=== PATIENT | female | born 1995 | race Caucasian/White ===

== ENCOUNTER → 2016-11-08 | Outpatient (REF) | payer BC, MEDICAID ==
[~2016-11-08] MED LIST: CEPH500C PO; COLA50CA3 PO; FERR325T3 PO; IBUP80TA PO; MOM30SS PO; MULTTAB4 PO; PERCOCET PO; PRENTAB74 PO
== END ==
LOC: M LAB REF 16:53
PROVIDERS: ATTEND Advanced Practice Midwife
DX: Z11.3 Encounter for screening for infections with a predominantly sexual mode of transmission (principal)
CPT/HCPCS: 87491; 87591; G0123

== ENCOUNTER → 2017-06-21 | Outpatient (REF) | payer MEDICAID ==
[2017-06-21 18:44] LABS: BACTERIA, URINE NONE SEEN; HYALINE CAST, URINE NONE SEEN /lpf (0-1); MICROSCOPIC EXAM PERFORMED; RBC, URINE 0-1 /hpf (0-3); SQUAMOUS EPITHELIAL CELL URINE SMALL AMOUNT /hpf (SMALL AMT); WBC, URINE 0-1 /hpf (0-3)
== END ==
LOC: M SMT 17:13
PROVIDERS: ATTEND Specialist
DX: N30.90 Cystitis, unspecified without hematuria (principal)

== ENCOUNTER → 2017-09-26 | Outpatient (REF) | payer MEDICAID ==
[2017-09-26 19:21] LABS: TOTAL 25(OH) VITAMIN D 34.3 NG/ML (30.0-100.0); VITAMIN B12 LEVEL 615 PG/ML (247-911)
[2017-09-27 11:46] LABS: CONTROL LINE MONO RF C INT CTR LINE PRESENT; MONO REFLEX EBV COMP NEGATIVE (NEGATIVE)
[2017-09-29 00:10] LABS: EBV VIRAL CAPSID AG IgM <36.0 U/mL (0.0-35.9)
== END ==
LOC: M SFHCPLAZ 14:56
DX: R53.83 Other fatigue (principal)

== ENCOUNTER → 2017-12-19 | Outpatient (REF) | payer MEDICAID, BC | LOC: M LAB REF 18:06 | DX: Z12.4 Encounter for screening for malignant neoplasm of cervix (principal) ==

== ENCOUNTER → 2018-01-18 | Outpatient (CLI) | payer BC, MEDICAID ==
[2018-01-18 17:02] LABS: CONTROL LINE HCG INT CTR LINE PRESENT; HCG, SERUM QUALITATIVE NEGATIVE (NEGATIVE)
[2018-01-18 17:27] LABS: PROGESTERONE 8.4 NG/ML
[2018-01-18 17:27] LABS: LUTEINIZING HORMONE 0.4 mIU/mL; PROLACTIN 6.9 NG/ML
[2018-01-18 17:28] LABS: ESTRADIOL 102.7 PG/ML; FOLLICLE STIMULATING HORMONE 0.8 mIU/mL
[2018-01-18 17:38] LABS: HEMATOCRIT 44.6 % (36.0-47.0); HEMOGLOBIN 14.6 g/dl (12.0-15.5); MEAN CORPUSCULAR HEMOGLOBIN 30.7 pg (27.0-33.0); MEAN CORPUSCULAR HGB CONC 32.7 g/dl (32.0-36.5); MEAN CORPUSCULAR VOLUME 93.7 fl (80.0-96.0); PLATELET COUNT, AUTOMATED 329 10^3/uL (150-450); RED BLOOD COUNT 4.76 10^6/uL (4.00-5.40); RED CELL DISTRIBUTION WIDTH 13.2 % (11.5-14.5)
[2018-01-18 22:14] LABS: FREE T4 0.68 NG/DL (0.76-1.46)
[2018-01-23 14:15] LABS: INSULIN LEVEL 11.1 uIU/mL (2.6-24.9)
[2018-01-24 10:14] LABS: 17 HYDROXY PROGESTERONE 69 ng/dL (.); DEHYDROEPIANDROSTERONE SULFATE 298.1 ug/dL (110.0-431.7); DEHYDROEPIANDROSTERONE UNCONJ 223 ng/dL (31-701); INSULIN FREE 6.5 uU/mL (.); TESTOSTERONE FREE (DIRECT) 1.7 pg/mL (0.0-4.2)
== END ==
LOC: M LRY 14:04
DX: N92.6 Irregular menstruation, unspecified (principal)
CPT/HCPCS: 83001

== ENCOUNTER → 2018-01-30 | Outpatient (REF) | payer BC, MEDICAID ==
[2018-02-13 00:06] LABS: HPV HYBRID CAPTURE II Positive (Negative)
== END ==
LOC: M LAB REF 12:13
DX: Z12.4 Encounter for screening for malignant neoplasm of cervix (principal)
CPT/HCPCS: G0123

== ENCOUNTER → 2018-03-08 | Outpatient (REF) | payer BC, MEDICAID ==
[2018-03-08 18:21] LABS: AMORPHOUS SEDIMENT SMALL (NEGATIVE); APPEARANCE, URINE CLOUDY (CLEAR); BACTERIA, URINE AUTO 3+ (NEGATIVE); BILIRUBIN, URINE AUTO NEGATIVE (NEGATIVE); BLOOD, URINE BLOOD NEGATIVE (NEGATIVE); COLOR, URINE YELLOW (YELLOW); GLUCOSE, URINE (UA) AUTO NEGATIVE (NEGATIVE); KETONE, URINE AUTO NEGATIVE (NEGATIVE); LEUKOCYTE ESTERASE, URINE AUTO 1+ (NEGATIVE); NITRITE, URINE AUTO NEGATIVE (NEGATIVE); PROTEIN, URINE AUTO NEGATIVE (NEGATIVE); RBC, URINE AUTO 3 /HPF (0-3); SPECIFIC GRAVITY URINE AUTO 1.012 (1.002-1.035); SQUAMOUS EPITHELIAL CELL UR AU 1 /HPF (0-6); UROBILINOGEN, URINE AUTO 0.2 mg/dL (0.0-2.0); WBC, URINE AUTO 21 /HPF (0-3)
== END ==
LOC: M SMT 17:02
DX: N30.90 Cystitis, unspecified without hematuria (principal)
CPT/HCPCS: 81001

== ENCOUNTER → 2018-10-23 | Outpatient (REF) | payer BC, MEDICAID ==
[2018-10-23 19:00] LABS: APPEARANCE, URINE HAZY (CLEAR); BACTERIA, URINE AUTO 2+ (NEGATIVE); BILIRUBIN, URINE AUTO NEGATIVE (NEGATIVE); BLOOD, URINE BLOOD 1+ (NEGATIVE); COLOR, URINE YELLOW (YELLOW); GLUCOSE, URINE (UA) AUTO NEGATIVE (NEGATIVE); KETONE, URINE AUTO NEGATIVE (NEGATIVE); LEUKOCYTE ESTERASE, URINE AUTO 2+ (NEGATIVE); NITRITE, URINE AUTO POSITIVE (NEGATIVE); PROTEIN, URINE AUTO NEGATIVE (NEGATIVE); RBC, URINE AUTO 4 /HPF (0-3); SPECIFIC GRAVITY URINE AUTO 1.011 (1.002-1.035); SQUAMOUS EPITHELIAL CELL UR AU 2 /HPF (0-6); UROBILINOGEN, URINE AUTO 0.2 mg/dL (0.0-2.0); WBC, URINE AUTO 32 /HPF (0-3)
== END ==
LOC: M SMT 17:30
PROVIDERS: ATTEND Specialist
DX: N39.0 Urinary tract infection, site not specified (principal)

== ENCOUNTER → 2018-12-17 | Outpatient (REF) | payer BC ==
[~2018-12-17] MED LIST changes: +OXYC1TAB23 PO; -PERCOCET PO
== END ==
LOC: M SFHCLERA 19:27
PROVIDERS: ATTEND Nurse Practitioner Family
DX: R53.81 Other malaise (principal)

== ENCOUNTER → 2019-03-24 | Outpatient (REF) | payer BC, MEDICAID | LOC: M LAB REF 13:03 | PROVIDERS: ATTEND Advanced Practice Midwife | DX: Z12.4 Encounter for screening for malignant neoplasm of cervix (principal) ==

== ENCOUNTER → 2019-03-28 | Outpatient (CLI) | payer BC ==
[2019-03-28 14:05] LABS: BLOOD UREA NITROGEN 10 MG/DL (7-18); CALCIUM LEVEL 8.8 MG/DL (8.5-10.1); CARBON DIOXIDE LEVEL 25 MEQ/L (21-32); CHLORIDE LEVEL 109 MEQ/L (98-107); CREATININE FOR GFR 0.95 MG/DL (0.55-1.30); GLOMERULAR FILTRATION RATE > 60.0 (>60); GLUCOSE, FASTING 85 MG/DL (70-100); POTASSIUM SERUM 4.2 MEQ/L (3.5-5.1); SODIUM LEVEL 140 MEQ/L (136-145)
== END ==
LOC: M SMT 09:46
PROVIDERS: ATTEND Specialist
DX: N30.90 Cystitis, unspecified without hematuria (principal)

== ENCOUNTER → 2019-05-29 | Outpatient (REF) | payer BC, MEDICAID | LOC: M SFHCPLAZ 16:47 | PROVIDERS: ATTEND Nurse Practitioner Family | DX: N30.90 Cystitis, unspecified without hematuria (principal) ==

== ENCOUNTER → 2019-06-24 | Outpatient (REF) | payer MEDICAID | LOC: M SFHCPLAZ 09:47 | PROVIDERS: ATTEND Nurse Practitioner Adult Health | DX: N30.90 Cystitis, unspecified without hematuria (principal) ==

== ENCOUNTER → 2019-06-27 | Outpatient (CLI) | payer MEDICAID ==
[2019-06-27 13:22] LABS: BLOOD UREA NITROGEN 11 MG/DL (7-18); CALCIUM LEVEL 9.3 MG/DL (8.5-10.1); CARBON DIOXIDE LEVEL 27 MEQ/L (21-32); CHLORIDE LEVEL 107 MEQ/L (98-107); CREATININE FOR GFR 0.91 MG/DL (0.55-1.30); GLOMERULAR FILTRATION RATE > 60.0 (>60); GLUCOSE, FASTING 78 MG/DL (70-100); POTASSIUM SERUM 4.6 MEQ/L (3.5-5.1); SODIUM LEVEL 139 MEQ/L (136-145)
== END ==
LOC: M SMT 10:42
PROVIDERS: ATTEND Specialist
DX: N39.44 Nocturnal enuresis (principal)

== ENCOUNTER → 2019-07-02 | Outpatient (REF) | payer MEDICAID | LOC: M SFHCLERA 12:28 | PROVIDERS: ATTEND Nurse Practitioner Family | DX: J02.9 Acute pharyngitis, unspecified (principal) ==

== ENCOUNTER → 2019-09-05 | Outpatient (REF) | payer MEDICAID | LOC: M SFHCPLAZ 16:41 | PROVIDERS: ATTEND Nurse Practitioner Adult Health | DX: R35.0 Frequency of micturition (principal) ==

== ENCOUNTER → 2019-11-10 | Outpatient (CLI) | payer MEDICAID ==
--- NOTE | 2019-11-10 14:27 | REPPI ---
LUMBAR SPINE SERIES: Five views. HISTORY: Back pain. FINDINGS: Five views of the lumbar spine demonstrate preserved vertebral body heights and normal alignment. Disc spaces are maintained. Pedicles and posterior elements are intact. Psoas margins are symmetric. Sacrum and SI joints are intact. A IUD is noted in place in the central pelvis. IMPRESSION: Normal views of the lumbar spine. Electronically Signed by Uriel Grissom MD 11/10/2019 05:44 P
--- NOTE | 2019-11-10 14:28 | REPPI ---
CERVICAL SPINE SERIES: Seven views. HISTORY: Cervical pain. FINDINGS: Lateral views done in flexion and extension and neutral position show normal alignment. No subluxation or instability. Vertebral body heights are preserved. Disc spaces are maintained. Prevertebral soft tissues are normal in appearance. AP, oblique and open mouth odontoid views are unremarkable. Facets are normally aligned and neural foramina are intact bilaterally at each cervical level. IMPRESSION: Negative radiographs of the cervical spine. Electronically Signed by Uriel Grissom MD 11/10/2019 05:44 P
== END ==
LOC: M PLAIMG 12:38
PROVIDERS: ATTEND Nurse Practitioner Adult Health
DX: M54.5 Low back pain (principal); M54.2 Cervicalgia

== ENCOUNTER → 2020-01-21 | Outpatient (REF) | payer MEDICAID ==
[2020-01-21 18:27] LABS: APPEARANCE, URINE CLEAR (CLEAR); BACTERIA, URINE AUTO NEGATIVE (NEGATIVE); BILIRUBIN, URINE AUTO NEGATIVE (NEGATIVE); BLOOD, URINE BLOOD NEGATIVE (NEGATIVE); COLOR, URINE STRAW (YELLOW); GLUCOSE, URINE (UA) AUTO NEGATIVE (NEGATIVE); KETONE, URINE AUTO NEGATIVE (NEGATIVE); LEUKOCYTE ESTERASE, URINE AUTO 3+ (NEGATIVE); NITRITE, URINE AUTO NEGATIVE (NEGATIVE); PROTEIN, URINE AUTO NEGATIVE (NEGATIVE); RBC, URINE AUTO 2 /HPF (0-3); SPECIFIC GRAVITY URINE AUTO 1.001 (1.002-1.035); SQUAMOUS EPITHELIAL CELL UR AU 0 /HPF (0-6); UROBILINOGEN, URINE AUTO 0.2 mg/dL (0.0-2.0); WBC, URINE AUTO 10 /HPF (0-3)
== END ==
LOC: M SMT 16:40
PROVIDERS: ATTEND Nurse Practitioner Women's Health
DX: R35.0 Frequency of micturition (principal)

== ENCOUNTER → 2020-07-16 | Outpatient (REF) | payer MEDICAID | LOC: M SFHCWAGY 13:12 | PROVIDERS: ATTEND Nurse Practitioner Women's Health | DX: Z11.3 Encounter for screening for infections with a predominantly sexual mode of transmission (principal) ==

== ENCOUNTER → 2020-07-19 | Outpatient (CLI) | payer MEDICAID ==
--- NOTE | 2020-07-20 05:36 | REP ---
INDICATION: N93.9 ABNORMAL UTERINE BLEEDING COMPARISON: 04/05/2016 TECHNIQUE: Transabdominal pelvic ultrasound followed by transvaginal examination for better evaluation of the endometrium and adnexa with color Doppler evaluation of the ovaries. FINDINGS: Bladder is unremarkable and measures 8.2 x 8.9 x 6.1 cm (234 cc). Normal anteverted uterus measures 9.1 x 4.1 x 5.8 cm and IUD is identified in central satisfactory position. No obvious uterine or endometrial abnormalities are appreciated.. Bilateral ovaries are normal in appearance and vascularity without evidence for torsion. Right ovary measures 4.1 x 2.2 x 3.6 cm with 1.5 x 1.2 x 1.4 cm simple para ovarian cyst; R I = 0.35. Left ovary measures 4.4 x 2.2 x 2.3 cm; R I = 0.29. No pelvic fluid or adnexal mass lesion IMPRESSION: Normal uterus with IUD in satisfactory position. 1.5 cm simple right paraovarian cyst possibly physiologic. <Electronically signed by Iftikhar Monge > 07/20/20 [id number]
== END ==
LOC: M WHC 14:31
PROVIDERS: ATTEND Nurse Practitioner Women's Health
DX: N93.9 Abnormal uterine and vaginal bleeding, unspecified (principal); Z97.5 Presence of (intrauterine) contraceptive device

== ENCOUNTER → 2020-08-03 | Outpatient (REF) | payer MEDICAID, OTHER ==
[2020-08-03 14:12] LABS: HEMATOCRIT 44.5 % (36.0-47.0); HEMOGLOBIN 13.9 g/dl (12.0-15.5); MEAN CORPUSCULAR HEMOGLOBIN 29.9 pg (27.0-33.0); MEAN CORPUSCULAR HGB CONC 31.2 g/dl (32.0-36.5); MEAN CORPUSCULAR VOLUME 95.7 fl (80.0-96.0); PLATELET COUNT, AUTOMATED 303 10^3/uL (150-450); RED BLOOD COUNT 4.65 10^6/uL (4.00-5.40); WHITE BLOOD COUNT 11.1 10^3/uL (4.0-10.0)
[2020-08-03 14:34] LABS: FREE T4 0.75 NG/DL (0.76-1.46); THYROID STIMULATING HORMONE 5.81 uIU/ML (0.358-3.740)
== END ==
LOC: M PLALAB 10:44
PROVIDERS: ATTEND Nurse Practitioner Women's Health
DX: N93.9 Abnormal uterine and vaginal bleeding, unspecified (principal); N76.0 Acute vaginitis

== ENCOUNTER → 2020-08-13 | Outpatient (CLI) | payer MEDICAID ==
[~2020-08-13] MED LIST changes: +ADDE10TA PO; +AIMO70IN IM; +METH-855 PO; +NARA2.5T PO; +OMEP-221 PO; +OXYB-54 PO; +PARO40TA2 PO; +TAMS1CAP17 PO; +TOPI50TA9 PO; +VALA500T5 PO; +[UNRECOGNIZED DRUG - CODE] PO
== END ==
LOC: M LABSMTC 10:36
PROVIDERS: ATTEND Anesthesiology
DX: Z01.812 Encounter for preprocedural laboratory examination (principal); Z20.828 Contact with and (suspected) exposure to other viral communicable diseases

== ENCOUNTER 2020-08-18 06:15 | Day surgery (SDC) | payer MEDICAID, OTHER ==
[~2020-08-18] VITALS: Ht 172.7 cm; Wt 97.1 kg
[2020-08-18] MEDS ORDERED: fentaNYL 100 MCG/2 ML INJECTION (J3010) As Ordered ONE (06:56)
[2020-08-18] MEDS ORDERED: LIDOCAINE 2% 100MG/5ML SDV (FOR ANES.) As Ordered ONE (06:56)
[2020-08-18] MEDS ORDERED: propofoL 200 MG/20 ML VIAL As Ordered ONE ×2 (06:56→08:26)
[2020-08-18] MEDS ORDERED: MIDAZOLAM INJ 2MG/2ML VIAL (J2250 PER 1MG) As Ordered ONE (06:56)
[2020-08-18] MEDS ORDERED: LR 1,000 ML IV ONE (07:00)
[2020-08-18] MEDS ORDERED: ceFAZolin 2 GM/D5W 50 ML IV BAG (J0690 PER 500MG) As Ordered ONE (07:18)
[2020-08-18] MEDS ORDERED: ceFAZolin SOD 2 GM in IV 1 EA IV ONE (07:30)
[2020-08-18 07:33] LABS: BLOOD UREA NITROGEN 13 MG/DL (7-18); CALCIUM LEVEL 8.7 MG/DL (8.5-10.1); CARBON DIOXIDE LEVEL 25 MEQ/L (21-32); CHLORIDE LEVEL 107 MEQ/L (98-107); CREATININE FOR GFR 0.94 MG/DL (0.55-1.30); GLOMERULAR FILTRATION RATE > 60.0 (>60); GLUCOSE, FASTING 91 MG/DL (70-100); POTASSIUM SERUM 3.9 MEQ/L (3.5-5.1); SODIUM LEVEL 141 MEQ/L (136-145)
[2020-08-18] MEDS ORDERED: SODIUM BICARBONATE 8.4% INJ 50MEQ 50 ML VIAL As Ordered ONE (08:13)
[2020-08-18] MEDS ORDERED: LIDOCAINE 1% SDV 30ML VIAL As Ordered ONE (08:13)
[2020-08-18] MEDS ORDERED: BACITRACIN PWD 50,000 UNITS VIAL As Ordered ONE (08:31)
[2020-08-18] MEDS ORDERED: valACYclovir HCL 500 MG TAB PO SCH (09:00)
[2020-08-18] MEDS ORDERED: PARoxetine 20MG TABLET PO SCH (09:00)
--- NOTE | 2020-08-18 09:06 | REP ---
INDICATION: URGE INCONTINENCE, NOCTURNAL ENURESIS. COMPARISON: None. TECHNIQUE: Two views. 24 seconds of fluoroscopy time is reported. FINDINGS: A sequence of 2 last image hold fluoroscopically obtained spot radiographs of the sacrum document trans sacral neurostimulator lead position. IMPRESSION: Procedural imaging. <Electronically signed by Thanh Grissom > 08/18/20 [id number]
[2020-08-18] MEDS ORDERED: LR 1,000 ML IV SCH (09:30)
[2020-08-18] MEDS ORDERED: fentaNYL 100 MCG/2 ML INJECTION (J3010) IV PRN (09:30)
[2020-08-18] MEDS ORDERED: ONDANSETRON 4MG/2ML VIAL IV PRN (09:30)
[2020-08-18] MEDS ORDERED: HYDROMORPHONE HCL 0.5 MG/ 0.5 ML SYRINGE (J1170 PER 1) IV PRN (09:30)
[2020-08-18] MEDS ORDERED: oxyCODONE 5MG TAB PO PRN (09:30)
[2020-08-18 09:45] VITALS: BP 108/57
--- NOTE | 2020-08-18 12:36 | ROOPDOC ---
[facility] Report Of Operation Report of Operation DATE OF PROCEDURE: 08/18/20 PREPROCEDURE DIAGNOSES: Urgency, frequency, urge incontinence, nocturnal enuresis POSTPROCEDURE DIAGNOSES: Same PROCEDURE: InterStim nerve stimulation stage I: Incision and implantation of tined quadripolar lead electrodes into foramen S3 with fluoroscopic guidance for nee dle placement InterStim stage II: Incision and subcutaneous implantation of sacral nerve neurostimulator with electronic analysis and programming SURGEON: Brionna Armas MD TRUCK SWITCHER: None ANESTHESIA: Sedation ESTIMATED BLOOD LOSS: Approximately 10 mL. COMPLICATIONS: None REMARKS: Excellent Toe some anal bellowing PROCEDURE NOTE: Debbie comes in today after having a bilateral percutaneous InterStim test in the office last week. She had very significant Krugman in her urinary urgency, frequency, urge incontinence and nocturnal enuresis. She wanted to go ahead with the permanent implantation. All different options, alternat nicole, risks, and benefits were discussed. She wanted the rechargeable battery placed. Informed consent was obtained in both verbal and written form. DESCRIPTION OF PROCEDURE: The patient was brought into the operating room and placed in the prone positio n. She had pillows placed under her pelvis and under her shins. Tape was placed so that we could see her anus. IV sedation was given and she was prepped and draped in the usual fashion. A special foramen needle was placed 2 cm above the sacral notch and 3 cm lateral where the drum tester had been placed. Using fluoroscopy this was then placed through the S3 foramen. The depth of the needle was confirmed and adjusted fluoroscopically. The patient then identified the location of sensation which was in her labia. We also had direct observation of lifting of the perineum and plantar flexion of the great toe. The foramen needle stylette was removed and a directional guide was placed and confirmed fluoroscopy. Lead introducer sheath and dilator was placed through the needle and the needle was removed. The lead was seen until 3 electrodes were visible below the sacrum. The electrode was tested for location and patient sensation, visualization of Alhaji, and plantar flexion. An incision was then made into the subcutaneous tissue posterior to the iliac crest and lateral to the sacrum. Blunt dissection was continued until there was a pocket large enough for the rechargeable battery. The tunneling tool with straw was placed from the lead exit site subcutaneously to the incised pocket. The tunneling to was removed and the lead was fed through the straw and pulled out of the pocket site. The lead was cleansed of bodily fluid, dried and antibiotic irrigation was used. The lead was then inserted into the header of the InterStim micro-neurostimulator until the blue tip was visualized at the distal window the single setscrew was tightened. The neurostimulator was placed in the subcutaneous pocket with the edge identified side placed upwards and the excessive lead wrapped counterclockwise around the neurostimulator. The programming head was placed over the implanted neurostimulator in a sterile cover to ensure adequate lead connection and the parameters with were within normal limits. Impedances were confirmed to be within normal limits. The wound was again irrigated with antibiotic solution and closed with 2-0 chromic subcuticulars sutures and 4-0 Vicryl skin sutures. Counts were correct. Steri- Strips and gauze was placed over the incision. The patient tolerated the procedure well. BRIONNA ARMAS MD Aug 18, 2020 12:36
[2020-08-18] MEDS ORDERED: CEPHALEXIN 500 MG CAP PO SCH (21:00)
[2020-08-18] MEDS ORDERED: ADDERALL 5 MG TAB PO SCH (21:00)
[2020-08-19] MEDS ORDERED: TOPIRAMATE (TopAMAX) 25 MG TAB PO SCH (09:00)
== END 2020-08-18 09:52 | disposition home or self-care (01) ==
LOC: M SDC 06:15
PROVIDERS: ATTEND Specialist
DX: R39.15 Urgency of urination (principal); R35.0 Frequency of micturition; N39.41 Urge incontinence; N39.44 Nocturnal enuresis; A60.09 Herpesviral infection of other urogenital tract; E03.9 Hypothyroidism, unspecified; K58.9 Irritable bowel syndrome, unspecified; K21.9 Gastro-esophageal reflux disease without esophagitis; F41.9 Anxiety disorder, unspecified; F32.9 Major depressive disorder, single episode, unspecified; G43.909 Migraine, unspecified, not intractable, without status migrainosus; F90.9 Attention-deficit hyperactivity disorder, unspecified type; F17.210 Nicotine dependence, cigarettes, uncomplicated; Z79.899 Other long term (current) drug therapy
CPT/HCPCS: 36415; 64581; 64590; 76000; 80048; 81025; C1767; C1787; C1897; J0690; J2250; J3010

== ENCOUNTER → 2021-01-25 | Outpatient (REF) | payer OTHER ==
[2021-01-25 14:40] LABS: FREE T4 0.83 NG/DL (0.76-1.46); THYROID STIMULATING HORMONE 3.82 uIU/ML (0.358-3.740)
== END ==
LOC: M PLALAB 12:45
PROVIDERS: ATTEND Nurse Practitioner Women's Health
DX: E03.9 Hypothyroidism, unspecified (principal)

== ENCOUNTER → 2021-12-01 | Outpatient (CLI) | payer OTHER ==
[~2021-12-01] MED LIST changes: -OMEP-221 PO; +OMEP40CA5 PO
[2021-12-01 16:16] LABS: ALBUMIN 3.7 GM/DL (3.2-5.2); ALT/SGPT 19 U/L (12-78); BILIRUBIN,TOTAL 0.5 MG/DL (0.2-1.0); BLOOD UREA NITROGEN 10 MG/DL (7-18); CALCIUM LEVEL 8.8 MG/DL (8.5-10.1); CARBON DIOXIDE LEVEL 25 MEQ/L (21-32); CHLORIDE LEVEL 108 MEQ/L (98-107); CREATININE FOR GFR 0.89 MG/DL (0.55-1.30); GLOMERULAR FILTRATION RATE > 60.0 (>60); GLUCOSE, FASTING 88 MG/DL (70-100); POTASSIUM SERUM 4.1 MEQ/L (3.5-5.1); SODIUM LEVEL 139 MEQ/L (136-145); TOTAL PROTEIN 7.4 GM/DL (6.4-8.2)
[2021-12-01 17:39] LABS: HEMOGLOBIN A1c 5.7 %
== END ==
LOC: M PLALAB 12:39
PROVIDERS: ATTEND Nurse Practitioner Adult Health
DX: Z13.1 Encounter for screening for diabetes mellitus (principal); E03.9 Hypothyroidism, unspecified; K64.4 Residual hemorrhoidal skin tags

== ENCOUNTER → 2021-12-22 | Outpatient (CLI) | payer OTHER | LOC: M RAD 11:42 | PROVIDERS: ATTEND Nurse Practitioner Adult Health | DX: R22.1 Localized swelling, mass and lump, neck (principal) ==

== ENCOUNTER → 2022-10-16 | Outpatient (REF) | payer OTHER ==
[2022-10-16 18:46] LABS: FREE T4 1.09 NG/DL (0.89-1.76); THYROID STIMULATING HORMONE 0.394 uIU/ML (0.55-4.78)
== END ==
LOC: M LABDRWAD 18:00
PROVIDERS: ATTEND Nurse Practitioner Family
DX: E03.9 Hypothyroidism, unspecified (principal)

== ENCOUNTER → 2023-05-20 | Outpatient (CLI) | payer OTHER ==
[~2023-05-20] MED LIST changes: +TOPI-254 PO; -TOPI50TA9 PO
[2023-05-20 11:15] LABS: ALBUMIN 3.6 G/DL (3.2-5.2); ALKALINE PHOSPHATASE 125 U/L (46-116); ALT/SGPT 17 U/L (7.0-40); AST/SGOT 24 U/L (<34); BILIRUBIN,TOTAL 0.4 MG/DL (0.3-1.2); BLOOD UREA NITROGEN 9 MG/DL (9-23); CALCIUM LEVEL 8.6 MG/DL (8.5-10.1); CARBON DIOXIDE LEVEL 25 MMOL/L (20-31); CHLORIDE LEVEL 110 MMOL/L (98-107); CHOLESTEROL LEVEL 196 MG/DL (<200); CHOLESTEROL RISK RATIO 4.25 (<5); CREATININE FOR GFR 0.83 MG/DL (0.55-1.30); GLOMERULAR FILTRATION RATE > 60.0 (>60); GLUCOSE, FASTING 92 MG/DL (60-100); HDL CHOLESTEROL 46.1 MG/DL (>40); LDL CHOLESTEROL 126.7 MG/DL (<100); NON-HDL-C 149.9 MG/DL; POTASSIUM SERUM 4.7 MMOL/L (3.5-5.1); SODIUM LEVEL 141 MMOL/L (136-145); TOTAL PROTEIN 6.8 G/DL (5.7-8.2); TRIGLYCERIDES LEVEL 116 MG/DL (<150)
== END ==
LOC: M LAB 10:19
PROVIDERS: ATTEND Nurse Practitioner Family
DX: E78.2 Mixed hyperlipidemia (principal)

== ENCOUNTER → 2024-06-30 | Outpatient (CLI) | payer OTHER ==
[~2024-06-30] MED LIST changes: +TOPI-21 PO; -TOPI-254 PO
[2024-06-30 11:35] LABS: ALBUMIN 3.6 G/DL (3.2-5.2); ALKALINE PHOSPHATASE 123 U/L (35-104); ALT/SGPT 11 U/L (7.0-40); AST/SGOT 12 U/L (<34); BILIRUBIN,TOTAL 0.4 MG/DL (0.3-1.2); BLOOD UREA NITROGEN 13 MG/DL (9-23); CALCIUM LEVEL 9.2 MG/DL (8.5-10.1); CARBON DIOXIDE LEVEL 26 MMOL/L (20-31); CHLORIDE LEVEL 109 MMOL/L (98-107); CHOLESTEROL LEVEL 142 MG/DL (<200); CHOLESTEROL RISK RATIO 2.95 (<5); CREATININE FOR GFR 0.88 MG/DL (0.55-1.30); GLOMERULAR FILTRATION RATE > 60.0 (>60); GLUCOSE, FASTING 96 MG/DL (60-100); HDL CHOLESTEROL 48.1 MG/DL (>40); LDL CHOLESTEROL 76.1 MG/DL (<100); NON-HDL-C 93.9 MG/DL; POTASSIUM SERUM 4.5 MMOL/L (3.5-5.1); SODIUM LEVEL 141 MMOL/L (136-145); TOTAL PROTEIN 6.8 G/DL (5.7-8.2); TRIGLYCERIDES LEVEL 89 MG/DL (<150)
[2024-06-30 11:37] LABS: FREE T4 1.17 NG/DL (0.89-1.76)
[2024-06-30 11:54] LABS: HEMOGLOBIN A1c 5.5 % (4.0-6.0)
== END ==
LOC: M PLALAB 08:18
PROVIDERS: ATTEND Nurse Practitioner Family
DX: E03.9 Hypothyroidism, unspecified (principal)

== ENCOUNTER → 2025-01-07 | Outpatient (CLI) | payer OTHER ==
[2025-01-07 11:02] LABS: FREE T4 1.4 NG/DL (0.89-1.76); THYROID STIMULATING HORMONE 1.241 uIU/ML (0.55-4.78)
== END ==
LOC: M PLALAB 08:24
PROVIDERS: ATTEND Nurse Practitioner Family
DX: E03.9 Hypothyroidism, unspecified (principal)

== ENCOUNTER → 2025-01-29 | Outpatient (CLI) | payer OTHER ==
[~2025-01-29] MED LIST changes: +ATOG60TA PO; +ATOR1TAB21 PO; +BOTO10VL IM; +COLA100C5 PO; +EFFE75CA2 PO; +PAXI10TA13 PO; +PROBCAP14 PO; +SPIR100T3 PO; +SYNT88TA2 PO; +[UNRECOGNIZED DRUG - CODE] SQ
[2025-01-29 19:20] LABS: BASO # 0.1 10^3/uL (0.0-0.2); BASO % 0.7 % (0.0-1.0); EOS # 0.2 10^3/uL (0.0-0.5); EOS % 1.6 % (0.0-3.0); HEMATOCRIT 37.4 % (36.0-47.0); HEMOGLOBIN 11.5 g/dl (12.0-15.5); LYMPH # 3.1 10^3/uL (1.5-5.0); LYMPH % 22.4 % (24.0-44.0); MEAN CORPUSCULAR HEMOGLOBIN 25.7 pg (27.0-33.0); MEAN CORPUSCULAR HGB CONC 30.7 g/dl (32.0-36.5); MEAN CORPUSCULAR VOLUME 83.5 fl (80.0-96.0); MONO # 0.8 10^3/uL (0.0-0.8); NEUTROPHILS # 9.6 10^3/uL (1.5-8.5); NEUTROPHILS % 68.9 % (36.0-66.0); PLATELET COUNT, AUTOMATED 416 10^3/uL (150-450); RED BLOOD COUNT 4.48 10^6/uL (4.00-5.40); WHITE BLOOD COUNT 13.9 10^3/uL (4.0-10.0)
[2025-01-29 19:49] LABS: ALBUMIN 3.8 G/DL (3.2-5.2); BILIRUBIN,TOTAL 0.3 MG/DL (0.3-1.2); CALCIUM LEVEL 8.8 MG/DL (8.5-10.1); CREATININE FOR GFR 0.93 MG/DL (0.55-1.30); GLOMERULAR FILTRATION RATE 84.3 (>60); POTASSIUM SERUM 4.5 MMOL/L (3.5-5.1); TOTAL PROTEIN 6.8 G/DL (5.7-8.2)
== END ==
LOC: M PLALAB 15:56
DX: K21.9 Gastro-esophageal reflux disease without esophagitis (principal)

== ENCOUNTER 2025-04-16 11:36 | Day surgery (SDC) | payer OTHER ==
[~2025-04-16] VITALS: Ht 172.7 cm; Wt 99.6 kg
[2025-04-16] MEDS ORDERED: LIDOCAINE 2% 100 MG/5 ML SDV (FOR ANES.) As Ordered ONE (12:31)
[2025-04-16 13:06] VITALS: TEMP 98.1
[2025-04-16 13:21] VITALS: BP 102/69; O2SAT 99
== END 2025-04-16 13:41 | disposition home or self-care (01) ==
LOC: M OPP 11:36
PROVIDERS: ATTEND Surgery
DX: K31.7 Polyp of stomach and duodenum (principal); K29.50 Unspecified chronic gastritis without bleeding; R11.0 Nausea; Z79.899 Other long term (current) drug therapy; F17.210 Nicotine dependence, cigarettes, uncomplicated
CPT/HCPCS: 43251; 88305; J3010

== ENCOUNTER → 2025-05-07 | Outpatient (CLI) | payer OTHER | LOC: M RAD 07:35 | PROVIDERS: ATTEND Physician Assistant | DX: R10.11 Right upper quadrant pain (principal) | CPT/HCPCS: 78227; A9537 ==

== ENCOUNTER → 2025-06-24 | Outpatient (CLI) | payer OTHER ==
[~2025-06-24] MED LIST changes: +METH-1100 PO; -METH-855 PO
[2025-06-24 15:47] LABS: PLATELET COUNT, AUTOMATED 436 10^3/uL (150-450)
[2025-06-24 16:42] LABS: ALT/SGPT 11.0 U/L (7.0-40); AST/SGOT 15.0 U/L (<34); CALCIUM LEVEL 9.9 MG/DL (8.5-10.1); CARBON DIOXIDE LEVEL 29.0 MMOL/L (20-31); CHLORIDE LEVEL 102.0 MMOL/L (98-107); CHOLESTEROL LEVEL 133.0 MG/DL (<200); CHOLESTEROL RISK RATIO 2.47 (<5); CREATININE FOR GFR 0.91 MG/DL (0.55-1.30); GLOMERULAR FILTRATION RATE 86.0 (>60); LDL CHOLESTEROL 61.8 MG/DL (<100); NON-HDL-C 79.2 MG/DL; POTASSIUM SERUM 4.6 MMOL/L (3.5-5.1); SODIUM LEVEL 139.0 MMOL/L (136-145); TRIGLYCERIDES LEVEL 87.0 MG/DL (<150)
[2025-06-24 18:13] LABS: ESTIMATED AVERAGE GLUCOSE 111.0 MG/DL (60-110)
== END ==
LOC: M PLALAB 12:25
PROVIDERS: ATTEND Nurse Practitioner Adult Health
DX: N93.9 Abnormal uterine and vaginal bleeding, unspecified (principal); R73.03 Prediabetes; E78.2 Mixed hyperlipidemia

== ENCOUNTER → 2025-07-13 | Outpatient (CLI) | payer OTHER ==
[2025-07-13 15:44] LABS: ALT/SGPT 11.0 U/L (7.0-40); AST/SGOT 21.0 U/L (<34); CALCIUM LEVEL 9.0 MG/DL (8.5-10.1); CARBON DIOXIDE LEVEL 27.0 MMOL/L (20-31); CHLORIDE LEVEL 102.0 MMOL/L (98-107); CHOLESTEROL LEVEL 136.0 MG/DL (<200); CHOLESTEROL RISK RATIO 2.66 (<5); CREATININE FOR GFR 0.9 MG/DL (0.55-1.30); FREE T4 1.21 NG/DL (0.89-1.76); GLOMERULAR FILTRATION RATE 87.1 (>60); LDL CHOLESTEROL 66.2 MG/DL (<100); NON-HDL-C 85.0 MG/DL; POTASSIUM SERUM 4.5 MMOL/L (3.5-5.1); SODIUM LEVEL 140.0 MMOL/L (136-145); TRIGLYCERIDES LEVEL 94.0 MG/DL (<150)
[2025-07-13 16:00] LABS: ESTIMATED AVERAGE GLUCOSE 114.0 MG/DL (60-110)
== END ==
LOC: M PLALAB 12:19
PROVIDERS: ATTEND Nurse Practitioner Family
DX: E03.9 Hypothyroidism, unspecified (principal); E78.2 Mixed hyperlipidemia; R73.03 Prediabetes

== ENCOUNTER 2025-07-28 09:57 | Outpatient (CLI) | payer OTHER ==
[~2025-07-28] VITALS: Ht 172.7 cm; Wt 92.3 kg
[~2025-07-28 09:57] MED LIST changes: +ALBUTEROL SULFATE 2.5 MG/0.5 ML INH CONCENTRATE NEB SOLN INH PRN; +EPINEPHrine INJ 1 MG/ML 1ML AMP IM PRN; +diphenhydrAMINE 50 MG/ML VIAL IV PRN
[2025-07-28 10:40] VITALS: BP 124/58; O2SAT 98
[2025-07-28] MEDS: ACETAMINOPHEN 650MG PO PRIOR TO INFUSION PO ONE (10:44)
[2025-07-28] MEDS: IRON SUCROSE 300 MG in NS 250 ML IV ONE (10:53)
[2025-07-28 12:48] VITALS: BP 142/78; O2SAT 98
== END 2025-07-28 12:50 | disposition home or self-care (01) ==
LOC: M INFU 09:57
PROVIDERS: ATTEND Nurse Practitioner Adult Health
DX: D50.9 Iron deficiency anemia, unspecified (principal)
CPT/HCPCS: 96365; J1756

== ENCOUNTER 2025-08-04 11:01 | Outpatient (CLI) | payer OTHER ==
[~2025-08-04] VITALS: Ht 172.7 cm; Wt 92.0 kg
[2025-08-04 11:15] VITALS: BP 119/57; O2SAT 97
[2025-08-04] MEDS ORDERED: ACETAMINOPHEN 650MG PO PRIOR TO INFUSION PO ONE (11:30)
[2025-08-04] MEDS: IRON SUCROSE 300 MG in NS 250 ML IV ONE (12:12)
[2025-08-04 14:45] VITALS: BP 129/60; O2SAT 98
== END 2025-08-04 14:50 | disposition home or self-care (01) ==
LOC: M INFU 11:01
PROVIDERS: ATTEND Nurse Practitioner Adult Health
DX: D50.9 Iron deficiency anemia, unspecified (principal)
CPT/HCPCS: 96365; 96366; J1756

== ENCOUNTER 2025-08-11 11:15 | Outpatient (CLI) | payer OTHER ==
[~2025-08-11] VITALS: Ht 172.7 cm; Wt 89.5 kg
[2025-08-11 11:10] VITALS: BP 100/66; O2SAT 99
[2025-08-11] MEDS: ACETAMINOPHEN 650MG PO PRIOR TO INFUSION PO ONE (12:10)
[2025-08-11] MEDS: IRON SUCROSE 300 MG in NS 250 ML IV ONE (12:10)
[2025-08-11 13:51] VITALS: BP 98/58; O2SAT 99
== END 2025-08-11 13:55 ==
LOC: M INFU 11:15
PROVIDERS: ATTEND Nurse Practitioner Adult Health
DX: D50.9 Iron deficiency anemia, unspecified (principal)
CPT/HCPCS: 96365; 96366; J1756

== ENCOUNTER 2025-08-18 11:03 | Outpatient (CLI) | payer OTHER ==
[~2025-08-18] VITALS: Ht 172.7 cm; Wt 88.6 kg
[2025-08-18 11:15] VITALS: BP 107/67; O2SAT 98
[2025-08-18] MEDS: IRON SUCROSE 300 MG in NS 250 ML IV ONE (12:02)
[2025-08-18] MEDS: ACETAMINOPHEN 325 MG TAB PO ONE (12:04)
[2025-08-18 13:40] VITALS: BP 114/62; O2SAT 99
== END 2025-08-18 13:45 | disposition home or self-care (01) ==
LOC: M INFU 11:03
PROVIDERS: ATTEND Nurse Practitioner Adult Health
DX: D50.9 Iron deficiency anemia, unspecified (principal)
CPT/HCPCS: 96365; 96366; J1756

== ENCOUNTER → 2025-08-31 | Outpatient (CLI) | payer OTHER ==
[~2025-08-31] MED LIST changes: -ALBUTEROL SULFATE 2.5 MG/0.5 ML INH CONCENTRATE NEB SOLN INH PRN; -EPINEPHrine INJ 1 MG/ML 1ML AMP IM PRN; -diphenhydrAMINE 50 MG/ML VIAL IV PRN
[2025-08-31 18:16] LABS: CALCIUM LEVEL 9.8 MG/DL (8.5-10.1); CARBON DIOXIDE LEVEL 31 MMOL/L (20-31); CHLORIDE LEVEL 101 MMOL/L (98-107); CREATININE FOR GFR 0.84 MG/DL (0.55-1.30); GLOMERULAR FILTRATION RATE > 90.0 (>60); POTASSIUM SERUM 4.3 MMOL/L (3.5-5.1); SODIUM LEVEL 138 MMOL/L (136-145)
[2025-08-31 18:18] LABS: PLATELET COUNT, AUTOMATED 364 10^3/uL (150-450)
== END ==
LOC: M PLALAB 14:59
PROVIDERS: ATTEND Physician Assistant
DX: Z01.818 Encounter for other preprocedural examination (principal)